=== PATIENT | female | born 1930 | race Caucasian/White ===

== ENCOUNTER 2017-07-30 10:38 | Emergency (ER) | payer OTHER ==
[2017-07-30] MEDS ORDERED: NS 500 ML IV ONE (10:53)
[2017-07-30 10:57] VITALS: RESP 18
--- NOTE | 2017-07-30 11:15 | CPEKG ---
Heart Rate: 72 RR Interval: 833 P-R Interval: 292 QRSD Interval: 186 QT Interval: 480 QTC Interval: 526 QRS [place]: 124 T Wave [place]: -39 EKG Severity - ABNORMAL ECG - EKG Impression: ATRIAL-PACED RHYTHM EKG Impression: RBBB AND LPFB Electronically Signed By: Zachary Pugh 30-Jul-2017 15:07:31
[2017-07-30 11:19] LABS: PLATELET COUNT 179 10^3/uL (150-400)
[2017-07-30 11:28] LABS: INR 1.91 (0.83-1.16)
--- NOTE | 2017-07-30 12:21 | EDPHY ---
H & P Time Seen by Provider: 07/30/17 10:50 HPI/ROS: HPI Fainting episode. 86-year-old female by ambulance with her friend. This patient does a water aerobics class 3 times a week at the [facility]. She had finished her water aerobics and was sitting with her group of friends having coffee when she started feeling lightheaded. Her friend states that she then slumped over the table and was unconscious for 2-3 minutes. Her friend states that she turned very pale. The patient reports that she has had this happen to her in the past but has never lost consciousness fully. She describes having sensations of lightheadedness. She reports this is thoroughly been evaluated by her [facility] physicians. She has a pacemaker in place but these episodes are thought to not be related to her pacemaker a pacemaker malfunction. She was on amiodarone and these episodes stopped. However, she was taken off this medication last October. She has not had any episodes up until today. She denies any associated chest pain, no shortness of breath, no loss of sensation or focal weakness, no associated headache. No sensation of palpitations. ROS: Constitutional: No fever, no chills. As above. Eyes: No discharge. No changes in vision. ENT: No sore throat. No nasal congestion or rhinorrhea. Respiratory: No cough. No shortness of breath. Cardiac: No chest pain, no palpitations. Gastrointestinal: No abdominal pain, no vomiting, no diarrhea. Genitourinary: No hematuria. No dysuria or increased frequency with urination. Musculoskeletal: No back pain. No neck pain. No myalgias or arthralgias. Skin: No rashes. Neurological: No headache. No focal weakness or altered sensation. Past medical history: Pacemaker, previous syncope, hypothyroidism. Primary care physician is through [place]. Social history: Nonsmoker. She currently lives alone. Here with her friend. No alcohol. Physical Exam: General Appearance: Alert, no distress. This patient is responding to questions appropriately and in full sentences. This patient appears well- hydrated and well-nourished. Eyes: Pupils equal and round no pallor or injection. No lid edema, erythema or injection. ENT, Mouth: Mucous membranes are moist. The pharyngeal tissues are unremarkable. No edema or swelling. No asymmetry suggestive of abscess. No erythema or exudates. No tongue lacerations or abrasions. Respiratory: There are no retractions, lungs are clear to auscultation with good air movement bilaterally. Cardiovascular: Regular rate and rhythm. No murmur. Gastrointestinal: Abdomen is soft and nontender, no masses, bowel sounds normal. No focal tenderness at McBurney's point. No Del Toro sign. Neurological: Motor sensory function is grossly intact. Cranial nerves are normal. Gait is normal. Skin: Warm and dry, no rashes. Musculoskeletal: Neck is supple and nontender. Extremities are symmetrical. All joints range without pain or impingement. Psychiatric: No agitation. No depression. Database: EKG: EKG time is 11:13 a.m.: EKG shows wide complex atrial paced rhythm with underlying right bundle branch block and left posterior fascicular block. No ST , T-wave changes indicative of ischemic or injury pattern. No EKG for comparison. Interpreted by me. Imaging: Procedures: Emergency department course: Her vital signs reviewed and are normal. She denies any headache. EKG obtained and reviewed by myself. She is declining CT scan of her head. I discussed admission for telemetry observation bed as well as pacemaker interrogation. She does not want to do either of these things. She tells me that her [place] physicians are well aware of this problem of hers and nothing will be found on pacemaker interrogation. 12:30 p.m., patient re-evaluated. Resting comfortably at this time. I discussed the results of her diagnostic workup in the emergency department. I again urged her to reconsider admission. She does not want to do this. She again does not want her pacemaker interrogated. She will follow up with her chief administrative officer through [place] at the [facility] tomorrow for re- evaluation. Her friend feels comfortable taking her home. The patient competently engages in shared decision making. They demonstrate capacitance to make decisions. In my professional opinion she understands the risks of her decisions. I thoroughly reviewed return to emergency department precautions. She will follow up as above tomorrow with [place]. All of her questions were answered. She was discharged in good condition. Differential Diagnosis: The differential diagnosis on this patient includes but is not limited to vasovagal, noncardiac syncope versus cardiac syncope. CVA, acute coronary syndrome, pulmonary embolism, subarachnoid hemorrhage unlikely. This represents a partial list of diagnoses considered. These considerations are based on history, physical exam, past history, reassessment and diagnostic testing. Smoking Status: Never smoked Constitutional: Initial Vital Signs Temperature (C) 36.4 C 07/30/17 10:53 Heart Rate 71 07/30/17 10:53 Respiratory Rate 18 07/30/17 10:53 Blood Pressure 114/73 07/30/17 10:53 O2 Sat (%) 92 07/30/17 10:53 O2 Delivery Mode Room Air Allergies/Adverse Reactions: No Known Allergies Allergy (Unverified 07/30/17 10:57) Home Medications: Medication Instructions Recorded Coumadin 07/30/17 Levothyroxine 07/30/17 Metoprolol Tartrate 07/30/17 Medical Decision Making - Data Points Laboratory Results: Laboratory Results 07/30/17 11:00 07/30/17 11:00 07/30/17 07/30/17 07/30/17 11:00 11:00 11:00 WBC 8.20 10^3/uL 10^3/uL (3.80-9.50) RBC 5.18 10^6/uL 10^6/uL (4.18-5.33) Hgb 15.8 g/dL g/dL (12.6-16.3) Hct 46.9 % % (38.0-47.0) MCV 90.5 fL fL (81.5-99.8) MCH 30.5 pg pg (27.9-34.1) MCHC 33.7 g/dL g/dL (32.4-36.7) RDW 13.4 % % (11.5-15.2) Plt Count 179 10^3/uL 10^3/uL (150-400) MPV 11.5 fL fL (8.7-11.7) Neut % (Auto) 68.8 % % (39.3-74.2) Lymph % (Auto) 19.0 % % (15.0-45.0) [place] % (Auto) 7.4 % % (4.5-13.0) Eos % (Auto) 4.1 % % (0.6-7.6) Baso % (Auto) 0.5 % % (0.3-1.7) Nucleat RBC Rel Count 0.0 % % (0.0-0.2) Absolute Neuts (auto) 5.63 10^3/uL 10^3/uL (1.70-6.50) Absolute Lymphs (auto) 1.56 10^3/uL 10^3/uL (1.00-3.00) Absolute Monos (auto) 0.61 10^3/uL 10^3/uL (0.30-0.80) Absolute Eos (auto) 0.34 10^3/uL 10^3/uL (0.03-0.40) Absolute Basos (auto) 0.04 10^3/uL 10^3/uL (0.02-0.10) Absolute Nucleated RBC 0.00 10^3/uL 10^3/uL (0-0.01) Immature Gran % 0.2 % % (0.0-1.1) Immature Gran # 0.02 10^3/uL 10^3/uL (0.00-0.10) PT 22.0 SEC H SEC (12.0-15.0) INR 1.91 H (0.83-1.16) APTT 33.3 SEC SEC (23.0-38.0) Sodium 139 mEq/L mEq/L (135-145) Potassium 4.5 mEq/L mEq/L (3.5-5.2) Chloride 106 mEq/L mEq/L (97-110) Carbon Dioxide 21 mEq/l L mEq/l (22-31) Anion Gap 12 mEq/L mEq/L (8-16) BUN 25 mg/dL H mg/dL (7-23) Creatinine 1.2 mg/dL H mg/dL (0.6-1.0) Estimated GFR 43 Glucose 129 mg/dL H mg/dL (70-100) Calcium 10.0 mg/dL mg/dL (8.5-10.4) Creatine Kinase 80 IU/L IU/L (0-156) CK-MB (CK-2) Fraction 3.07 ng/mL ng/mL (0.00-3.19) Troponin I < 0.012 ng/mL ng/mL (0.000-0.034) Medications Given: Discontinued Medications Sodium Chloride (Ns) 500 mls @ 1,000 mls/hr IV EDNOW ONE PRN Reason: Protocol Stop: 07/30/17 11:22 Last Admin: 02/14/18 11:37 Dose: 500 mls Departure - Departure Disposition: Against Medical Advice Clinical Impression: Syncope Condition: Good Instructions: Syncope (ED) Additional Instructions: Read and follow provided instructions. Follow-up with your chief administrative officer at [place] tomorrow for re-evaluation as discussed. Explain this is for an emergency department follow-up. Take your medication as prescribed. Return to the emergency department for worsening symptoms lightheadedness, headache, chest pain or other serious concerns. Keep well hydrated. No strenuous activity until cleared by her chief administrative officer. Referrals: BRITTANIE DAMON [Primary Care Provider] - As per Instructions
[2017-07-30 12:45] LABS: CREATINE KINASE 80 IU/L (0-156)
[2017-07-30 14:04] VITALS: BP 147/89; PULSE 84; TEMP 97.3; O2SAT 96
== END 2017-07-30 14:04 | disposition left against medical advice (07) ==
LOC: EDUNIT#
DX: R55 Syncope and collapse (principal); E86.9 Volume depletion, unspecified; Z95.0 Presence of cardiac pacemaker